=== PATIENT | female | born 1965 | race Caucasian/White ===

== ENCOUNTER 2021-03-04 09:49 | Outpatient (CLI) | payer OTHER | END 2021-03-04 09:50 | disposition home or self-care (01) | LOC: BICULT 09:49 | PROVIDERS: ATTEND Physician Assistant Medical | DX: R10.9 Unspecified abdominal pain (principal); R94.5 Abnormal results of liver function studies; K21.9 Gastro-esophageal reflux disease without esophagitis; R19.4 Change in bowel habit; K76.0 Fatty (change of) liver, not elsewhere classified; K62.5 Hemorrhage of anus and rectum; Z86.010 Personal history of colon polyps | CPT/HCPCS: 93975 ==

== ENCOUNTER → 2023-05-20 | Day surgery (SDC) | payer OTHER | LOC: SDC 12:48 | PROVIDERS: ATTEND Internal Medicine | DX: R13.10 Dysphagia, unspecified (principal) | CPT/HCPCS: 91010 ==

== ENCOUNTER 2023-09-23 11:24 | Outpatient (CLI) | payer OTHER ==
[2023-09-23] MEDS ORDERED: Iopamidol 370 76% 100 ML VIAL ONE (12:35)
== END 2023-09-23 11:25 | disposition home or self-care (01) ==
LOC: CT 11:24
PROVIDERS: ATTEND Physician Assistant Medical
DX: K75.81 Nonalcoholic steatohepatitis (NASH) (principal); R63.4 Abnormal weight loss; S32.019A Unspecified fracture of first lumbar vertebra, initial encounter for closed fracture; N13.30 Unspecified hydronephrosis; K59.00 Constipation, unspecified
CPT/HCPCS: 74177